=== PATIENT | male | born 1950 | race Caucasian/White ===

== ENCOUNTER 2017-09-23 11:16 | Outpatient (CLI) | payer BC ==
[2017-09-23 12:12] LABS: ALBUMIN/GLOBULIN RATIO 1.5 (1.0-2.2); BILIRUBIN,TOTAL 0.9 mg/dL (0.2-1.0); BUN - BLOOD UREA NITROGEN 15 mg/dL (6-20); CALCIUM 9.7 mg/dL (8.5-10.3); CARBON DIOXIDE - CO2 27 mmol/L (21-32); CHLORIDE 101 mmol/L (101-111); CHOL/HDL RATIO 3.7 (<5.0); CHOLESTEROL 187 mg/dL; CREATININE 0.7 mg/dL (0.6-1.2); GFR - MDRD 113 (>89); GLUCOSE 127 mg/dL (70-100); HDL CHOLESTEROL 50 mg/dL; LDL/HDL RATIO 2.2 (<3.6); POTASSIUM 4.2 mmol/L (3.5-5.0); SODIUM 137 mmol/L (135-145); TOTAL PROTEIN 7.2 g/dL (6.7-8.2); TRIGLYCERIDES 123 mg/dL; VLDL CHOLESTEROL 25 mg/dL
[2017-09-23 12:13] LABS: HEMOGLOBIN A1C 0.66 g/dL
== END 2017-09-23 11:17 | disposition home or self-care (01) ==
LOC: LAB 11:16
PROVIDERS: ATTEND Physician Assistant
DX: E78.5 Hyperlipidemia, unspecified (principal); E11.9 Type 2 diabetes mellitus without complications
CPT/HCPCS: 36415; 80053; 80061; 83036

== ENCOUNTER 2017-10-09 10:40 | Day surgery (SDC) | payer BC ==
[2017-10-09] MEDS ORDERED: LACTATED RINGERS 1,000 ML IV ONE (11:06)
[2017-10-09] MEDS ORDERED: fentaNYL 100 MCG/2 ML VIAL IVP ONE (11:49)
[2017-10-09] MEDS ORDERED: MIDAZOLAM 2 MG/2 ML VIAL IVP ONE (11:49)
[2017-10-09 12:55] VITALS: BP 104/71
== END 2017-10-09 10:41 | disposition home or self-care (01) ==
LOC: SDS 10:40
PROVIDERS: ATTEND Surgery
PROC: 0DBP8ZX Excision of Rectum, Via Natural or Artificial Opening Endoscopic, Diagnostic (ICD-10-PCS; 2017-10-09)
PROC: 0DBL8ZX Excision of Transverse Colon, Via Natural or Artificial Opening Endoscopic, Diagnostic (ICD-10-PCS; principal; 2017-10-09 11:45)
DX: Z12.11 Encounter for screening for malignant neoplasm of colon (principal); D12.3 Benign neoplasm of transverse colon; D12.0 Benign neoplasm of cecum; K62.1 Rectal polyp; E11.9 Type 2 diabetes mellitus without complications; Z79.84 Long term (current) use of oral hypoglycemic drugs
CPT/HCPCS: 45380; 45385; J7120

== ENCOUNTER 2021-07-09 10:26 | Outpatient (CLI) | payer MEDICARE ==
[2021-07-09 10:52] LABS: CHOL/HDL RATIO 5.8 (<5.0); CHOLESTEROL 180 mg/dL; HDL CHOLESTEROL 31 mg/dL; LDL CHOLESTEROL,CALCULATED 90 mg/dL; LDL/HDL RATIO 2.9 (<3.6); TRIGLYCERIDES 293 mg/dL; VLDL CHOLESTEROL 59 mg/dL
[2021-07-09 11:24] LABS: PSA FREE 0.12 ng/mL (0.16-2.81); PSA TOTAL 0.52 ng/mL (0.000-2.000)
[2021-07-09 14:23] LABS: ESTIMATED AVERAGE GLUCOSE 232 mg/dL (70-100); HEMOGLOBIN A1c% 9.7 % (4.27-6.07)
== END 2021-07-09 23:59 | disposition home or self-care (01) ==
LOC: LAB 10:26
PROVIDERS: ATTEND Nurse Practitioner Family
DX: E11.9 Type 2 diabetes mellitus without complications (principal); E78.5 Hyperlipidemia, unspecified; Z11.4 Encounter for screening for human immunodeficiency virus [HIV]; Z12.5 Encounter for screening for malignant neoplasm of prostate; Z11.59 Encounter for screening for other viral diseases
CPT/HCPCS: 36415; 80061; 83036; 84153; 84154; 87522; G0475; 83721; 87389

== ENCOUNTER 2021-12-09 06:25 | Day surgery (SDC) | payer MEDICARE ==
[2021-12-09] MEDS ORDERED: LACTATED RINGERS 1,000 ML IV ONE ×2 (06:34→08:51)
[2021-12-09] MEDS ORDERED: PROPOFOL 500 MG/50 ML 500 MG/50 ML VIAL ONE (07:18)
[2021-12-09] MEDS ORDERED: fentaNYL 100 MCG/2 ML VIAL ONE ×2 (07:19→09:31)
[2021-12-09] MEDS ORDERED: MIDAZOLAM 2 MG/2 ML VIAL ONE ×2 (07:19→09:31)
--- NOTE | 2021-12-09 07:30 | ANESTHESIA ---
Pre-Anesthesia VS, & Labs - Diagnosis hx of colon polyps - Procedure colonoscopy Vital Signs: Temp Pulse Resp BP Pulse Ox 36.1 C L 81 18 164/101 H 98 12/09/21 06:35 12/09/21 06:35 12/09/21 06:35 12/09/21 06:35 12/09/21 06:35 Height: 5 ft 10 in Weight (kg): 97 kg Body Mass Index: 30.7 BMI Classification: Obese - NPO Other Last Fluid Intake: 399 - Lab Results Current Lab Results: Laboratory Tests 12/09/21 06:52: POC Whole Bld Glucose 342 H Home Medications and Allergies Home Medications: Ambulatory Orders glipiZIDE [Glipizide] 1 tab PO DAILY 12/09/21 metFORMIN [Glucophage] 2 tab ORAL BID 10/09/17 glipiZIDE [Glipizide] 1 tab PO DAILY 12/09/21 Allergies/Adverse Reactions: Allergies Allergy/AdvReac Type Severity Reaction Status Date / Time No Known Drug Allergies Allergy Verified 09/06/19 16:37 Anes History & Medical History - Anesthetic History Anesthesia Complications: reports: No previous complications Family history of Anesthesia Complications: Denies Family history of Malignant Hyperthermia: Denies - Medical History Cardiovascular: reports: None Pulmonary: reports: Sleep apnea Gastrointestinal: reports: Colon polyps Urinary: reports: None Musculoskeletal: reports: None Endocrine/Autoimmune: reports: Type 2 diabetes Skin: reports: None Smoking Status: Never smoker - Surgical History General: reports: Colonoscopy Eyes Ears Nose Throat (EENT): reports: Other Gynecologic: Exam General: Oriented x3, Cooperative Dental: WNL Mouth Openin Fingerbreadth Neck Mobility: Normal Mallampati classification: III Thyromental Distance: 4-6 cm Respiratory: Lungs clear Cardiovascular: Regular rate Plan Anesthesia Type: Total IV Consent for Procedure(s) Verified and Reviewed: Yes Code Status: Attempt Resuscitation ASA classification: 3-Severe systemic disease Is this case an emergency?: Yes
[2021-12-09 09:19] VITALS: BP 116/84
[2021-12-09] MEDS ORDERED: GLYCOPYRROLATE 1 MG/5 ML VIAL ONE (09:31)
--- NOTE | 2021-12-09 10:36 | ANESTHESIA POST OP EVALUATION ---
Anesthesia Post Eval - Post Anesthesia Eval Vitals: Last Vital Signs Temp 36 C L 12/09/21 09:18 Pulse 77 12/09/21 09:18 Resp 19 12/09/21 09:18 BP 116/84 H 12/09/21 09:18 Pulse Ox 98 12/09/21 09:18 CV Function Including HR & BP: Stable Pain Control: Satisfactory Nausea & Vomiting: Negative Mental Status: Baseline Respiratory Status: Airway Patent Hydration Status: Satisfactory Anesthesia Complications: None
== END 2021-12-09 06:26 | disposition home or self-care (01) ==
LOC: SDS 06:25
PROVIDERS: ATTEND Surgery
PROC: 0DBL8ZX Excision of Transverse Colon, Via Natural or Artificial Opening Endoscopic, Diagnostic (ICD-10-PCS; 2021-12-09)
PROC: 0DBN8ZX Excision of Sigmoid Colon, Via Natural or Artificial Opening Endoscopic, Diagnostic (ICD-10-PCS; 2021-12-09)
PROC: 0DBP8ZX Excision of Rectum, Via Natural or Artificial Opening Endoscopic, Diagnostic (ICD-10-PCS; 2021-12-09)
PROC: 0DBM8ZX Excision of Descending Colon, Via Natural or Artificial Opening Endoscopic, Diagnostic (ICD-10-PCS; 2021-12-09)
PROC: 0DBK8ZX Excision of Ascending Colon, Via Natural or Artificial Opening Endoscopic, Diagnostic (ICD-10-PCS; principal; 2021-12-09 07:30)
DX: Z12.11 Encounter for screening for malignant neoplasm of colon (principal); D12.2 Benign neoplasm of ascending colon; D12.4 Benign neoplasm of descending colon; D12.5 Benign neoplasm of sigmoid colon; D12.3 Benign neoplasm of transverse colon; D12.8 Benign neoplasm of rectum; Z86.010 Personal history of colon polyps; E11.9 Type 2 diabetes mellitus without complications; E66.9 Obesity, unspecified; G47.33 Obstructive sleep apnea (adult) (pediatric); Z68.32 Body mass index [BMI] 32.0-32.9, adult; Z79.84 Long term (current) use of oral hypoglycemic drugs
CPT/HCPCS: 45380; 45385; J7120

== ENCOUNTER 2022-08-08 08:38 | Outpatient (CLI) | payer MEDICARE ==
--- NOTE | 2022-08-08 17:15 | Ultrasound Report ---
PROCEDURE: Duplex Ext Veins Right INDICATIONS: DVT, on blood thinners TECHNIQUE: Real-time imaging, as well as color and pulse Doppler interrogation, were performed of the lower extr emity deep veins from the inguinal ligament to the popliteal fossa. COMPARISON: 05/31/2022. FINDINGS: The right superficial femoral vein is duplicated in the mid thigh and distal thigh. One of the 2 duplicated vessels is thrombosed. The other duplicated vessel is patent. The popliteal contains occlusive thrombus. IMPRESSION: Occlusive DVT involving the right popliteal vein, as well as one of the duplicated branc hes of the right superficial femoral vein. Findings are similar to the previous study. Reviewed by: Vahid Oswald MD on 08/08/2022 5:14 PM PDT Approved by: Vahid Oswald MD on 08/08/2022 5:14 PM PDT Station ID: [id number]
== END 2022-08-08 08:39 | disposition home or self-care (01) ==
LOC: DI 08:38
PROVIDERS: ATTEND Nurse Practitioner Family
DX: I82.431 Acute embolism and thrombosis of right popliteal vein (principal); I82.411 Acute embolism and thrombosis of right femoral vein

== ENCOUNTER 2022-10-28 14:02 | Outpatient (CLI) | payer MEDICARE ==
--- NOTE | 2022-10-28 20:09 | Ultrasound Report ---
PROCEDURE: Duplex Ext Veins Right INDICATIONS: DVT TECHNIQUE: Real-time imaging, as well as color and pulse Doppler interrogation, were performed of the lower extr emity deep veins from the inguinal ligament to the popliteal fossa. COMPARISON: 08/08/2022, 05/31/2022. FINDINGS: There are residual nonocclusive filling defects within one of the duplicated distal superficial femor al veins and the popliteal vein consistent with chronic resolving thrombus. The remaining deep veins are normally compressible, and free of intraluminal thrombus. Color and pulse Doppler demonstrate no rmal phasic intraluminal flow. There is normal augmentation response to distal compression maneuver. IMPRESSION: 1. Residual nonocclusive chronic thrombus within one of the duplicated distal superficial femoral vei ns and the popliteal vein. Reviewed by: Suraj Isaacs MD on 10/28/2022 8:08 PM PST Approved by: Suraj Isaacs MD on 10/28/2022 8:08 PM PST Station ID: [id number]
== END 2022-10-28 14:03 | disposition home or self-care (01) ==
LOC: DI 14:02
PROVIDERS: ATTEND Nurse Practitioner Family
DX: I82.811 Embolism and thrombosis of superficial veins of right lower extremity (principal)

== ENCOUNTER 2023-12-07 12:17 | Outpatient (CLI) | payer MEDICARE | END 2023-12-07 12:18 | disposition home or self-care (01) | LOC: DI 12:17 | PROVIDERS: ATTEND Nurse Practitioner Family | DX: I35.8 Other nonrheumatic aortic valve disorders (principal); I77.810 Thoracic aortic ectasia; R01.1 Cardiac murmur, unspecified | CPT/HCPCS: 93307 ==